=== PATIENT | male | born 1970 | race Caucasian/White ===

== ENCOUNTER 2024-07-09 15:18 | Emergency (ER) | payer OTHER, SELFPAY ==
[2024-07-09 15:23] VITALS: BP 183/86; PULSE 99; RESP 14; TEMP 37.2; O2SAT 98; BMI 36.3
--- NOTE | 2024-07-09 15:52 | ED_ITS ---
HPI - Back Pain/Injury General Chief Complaint: Back Pain/Injury Stated Complaint: Kidney Stones Time Seen by Provider: 07/09/24 15:34 Source: patient History of Present Illness HPI Narrative: Patient here for right flank pain. Patient states started slowly this morning and worsened by noon time. Patient has history of kidney stones and thinks it may feel about the same. Has nausea but no vomiting. No urinary complaints. No hematuria. No groin or testicular pain or discomfort. Reducible on palpation Related Data Previous Rx's Medication Instructions Recorded baclofen 20 mg tablet 20 mg PO TID PRN pain (scale score 07/09/24 4-6) #20 tabs Allergies Allergy/AdvReac Type Severity Reaction Status Date / Time codeine Allergy Verified 07/09/24 15:23 Review of Systems Review of Systems Narrative: GENERAL: Negative chills, fatigue, malaise, fever, sweats. HEENT: Negative sinus pain, ear pain, sore throat RESPIRATORY: Negative dyspnea, cough CARDIOVASCULAR: Negative chest pain, palpitations GASTROINTESTINAL: Negative vomiting, positive nausea, positive flank/abdominal pain : Negative dysuria, frequency, hematuria MUSCULOSKELETAL: Negative muscle or bony pain SKIN: Negative rash, skin lesions NEUROLOGIC: Negative weakness, numbness ROS Unobtainable: All systems reviewed & are unremarkable except as noted in HPI and below Patient History Social History Smoking Status: Never smoker Smoking Status: Never smoker Alcohol type: beer, wine and hard liquor Exam Narrative Exam Narrative: GENERAL: in no distress, not toxic not dyspneic HEAD: Normocephalic. EYES: Pupils equal round ENT: Mucous membranes moist. NECK: Trachea midline. CARDIOVASCULAR: Regular rate and rhythm RESPIRATORY: Clear to auscultation. Breath sounds equal bilaterally. No wheezes, rales, or rhonchi. GASTROINTESTINAL: Abdomen soft, non-tender no CVA tenderness no pain out of portion exam. No peritoneal signs no guarding no rebound. Bowel sounds are present. EXTREMITIES: No gross deformities. BACK: No flank tenderness. NEURO: AOx4. Clear speech SKIN: Warm and dry PSYCH: Not anxious, is cooperative Initial Vital Signs Initial Vital Signs: Vital Signs Temperature 98.9 F 07/09/24 15:23 Pulse Rate 99 H 07/09/24 15:23 Respiratory Rate 14 07/09/24 15:23 Blood Pressure 183/86 H 07/09/24 15:23 Pulse Oximetry 98 07/09/24 15:23 Oxygen Delivery Method Room Air 07/09/24 15:23 Course Orders Ordered: Discontinued Medications Sodium Chloride (Normal Saline 0.9%) 1,000 mls @ 1,000 mls/hr IV BOLUS ONE Stop: 07/09/24 16:50 Last Infusion: 07/09/24 17:15 Dose: Infused Documented By: Admin: 07/09/24 16:02 Dose: 1,000 mls/hr Documented By: ALEKSANDR Ketorolac Tromethamine (Ketorolac 30 Mg/Ml Vial) 15 mg IV NOW ONE Stop: 07/09/24 15:52 Last Admin: 07/09/24 16:01 Dose: 15 mg Documented By: ALEKSANDR Ondansetron HCl (Ondansetron 4 Mg/2 Ml Inj) 4 mg IV NOW PRN PRN Reason: Nausea And Vomiting Last Admin: 07/09/24 16:02 Dose: 4 mg Documented By: ALEKSANDR Ondansetron HCl (Ondansetron 4 Mg Odt) 4 mg PO NOW PRN PRN Reason: Nausea And Vomiting Vital Signs Vital signs: Vital Signs - 8 hr 07/09/24 15:23 Temperature 98.9 F Pulse Rate 99 H Respiratory Rate 14 Blood Pressure 183/86 H Pulse Oximetry 98 Oxygen Delivery Method Room Air MDM - Back Pain/Injury Lab Data 07/09/24 15:46 07/09/24 15:46 Labs: Lab Results 07/09/24 Range/Units 15:46 WBC 5.1 (4.5-11.0) X10^3/uL RBC 4.75 (4.5-5.9) X10^6/uL Hgb 15.1 (13.5-17.5) g/dL Hct 43.5 (41-53) % MCV 91.4 (80-100) fL MCH 31.7 (26-34) PG MCHC 34.7 (30-36) % RDW 14.5 (11.6-14.8) % Plt Count 212 (150-400) X10^3/uL Neut % (Auto) 51.8 (50-75) % Lymph % (Auto) 37.7 (25-40) % [place] % (Auto) 8.0 (3-14) % Eos % (Auto) 1.6 L (2-4) % Baso % (Auto) 0.9 (0-2) % Neut # (Auto) 2600 (7209-2968) /uL Lymph # (Auto) 1900 (5907-0215) /uL [place] # (Auto) 400 (0-900) /uL Eos # (Auto) 100 (0-450) /uL Baso # (Auto) 0 (0-100) /uL Sodium 134 L (137-145) mmol/L Potassium 4.1 (3.4-5.1) mmol/L Chloride 102 (98-107) mmol/L Carbon Dioxide 21 L (22-32) mmol/L BUN 16 (9-20) mg/dL Creatinine 0.83 (0.66-1.25) mg/dL Estimated GFR > 60 (>60) mL/min BUN/Creatinine Ratio 19.3 (6-22) Glucose 236 H (70-100) mg/dL Calcium 8.7 (8.4-10.2) mg/dL Total Bilirubin 0.7 (0.2-1.3) mg/dL AST 37 (17-59) IU/L ALT 34 (<50) IU/L Alkaline Phosphatase 88 (38-126) U/L Total Protein 7.6 (6.3-8.2) g/dL Albumin 4.6 (3.5-5.0) g/dL Globulin 3.0 (1.7-4.1) g/dL Albumin/Globulin Ratio 1.5 (1.0-2.8) Lipase 60 (23-300) U/L Urine Dip Bedside Urine Glucose Negative Bedside Urine Bilirubin - Negative Bedside Urine Ketone - Negative Urine Specific [place] 1.030 Bedside Urine Occult Blood - Negative Bedside Urine pH 6.0 Bedside Urine Protein - Negative Bedside Urine Urobilinogen - Negative Bedside Urine Nitrite - Negative Bedside Urine Leukocytes - Negative Esterase Imaging Data CT scan - abdomen/pelvis: Radiologist's Impression: [address] [address] [address] Scan Report Signed Patient: Tristan Schaffer MR#: [id number] : 1970 Acct:[id number] Age/Sex: 54 / M Date of Service: 07/09/24 Loc: ED Accession Number: [id number] Procedure: CT kidney ureter bladder (KUB) Ordering Provider: Brannon Yu MD PROCEDURE: CT KIDNEY URETER BLADDER (KUB) INDICATIONS: Right flank pain TECHNIQUE: Axial sections were acquired from the lung bases to the pubic symphysis. Coronal and sagittal reformats were performed. For radiation dose reduction, the following was used: automated exposure control, adjustment of mA and/or kV according to patient size. COMPARISON: None. FINDINGS: Image quality: Diagnostic. Lower Chest: No significant findings. URINARY: Right Kidney: No discrete stone however the some increased densities within the parenchyma measuring approximately 5 mm. This may reflect milk of calcium versus hemorrhagic cyst. Right Ureter: No hydroureter. Left Kidney: No stones or hydronephrosis. Left Ureter: No hydroureter. Bladder: Normal wall thickness. No stones. ABDOMEN: Liver: No contour-deforming solid mass. Gallbladder: No radiopaque gallstones or wall thickening. Biliary ducts: No biliary dilation. Pancreas: No ductal dilation. Spleen: Size is within normal limits. Adrenal Glands: No adrenal nodules. Stomach and Bowel: Normal colonic caliber, without significant wall thickening. Numerous colonic diverticula without evidence of acute diverticulitis. Normal appendix. Peritoneum: No abnormal intraperitoneal fluid. No free air. Ventral Wall: No hernia. Abdominal Nodes: No enlarged retroperitoneal or mesenteric lymph nodes. Vessels: Aorta and inferior vena cava are normal in size. PELVIS: Pelvic Organs: Unremarkable. Pelvic Nodes: Unremarkable. Miscellaneous: Small left fat containing inguinal hernia. Bones: Unremarkable. IMPRESSION: No obstructing stone or hydronephrosis. Intermediate density within the right kidney may reflect hemorrhagic cyst or milk of calcium with mass not excluded. Consider dedicated nonemergent MRI for further evaluation Numerous colonic diverticula without evidence of acute diverticulitis. Dictated by: Brannon Myles M.D. on 07/09/2024 at 15:26 Approved by: Brannon Myles M.D. on 07/09/2024 at 15:32 [facility] Narrative Medical decision making narrative: Patient here for right flank pain. Patient states started slowly this morning and worsened by noon time. Patient has history of kidney stones and thinks it may feel about the same. Has nausea but no vomiting. No urinary complaints. No hematuria. No groin or testicular pain or discomfort. Reducible on palpation After history and exam, Toradol Zofran normal saline CBC CMP urinalysis CT KUB [facility] Medical records reviewed: No recent visit here for this complaint Differential considered: Includes but not limited to UTI pyelonephritis kidney stone ureteral stone cholelithiasis cholecystitis Lab Test results independently reviewed as above. Pertinent findings: WBC 5.1 hemoglobin 15.1 sodium 134 potassium 4.1 AST 37 ALT 34 lipase 60 urinalysis negative blood negative leukocyte esterase negative nitrite Imaging studies independently reviewed: CT KUB, no kidney stone renal stone, there is a right renal cyst. Consultations: None indicated at this time Re-evaluations: 5:00 p.m.. Updated patient results. Exam is reassuring. Laboratory studies are reassuring. However will need continued evaluation by Urology given CT findings of renal cyst. Is likely musculoskeletal causing pain, reviewed with him. Patient is reviewed. Prescriptions provided. He is from [place]. He will need to follow up with his primary care regarding blood pressure findings today. However is likely due to pain at this time. Return precautions reviewed. He desires discharge home. Discussion: Appropriate for discharge home exam is reassuring. Return precautions reviewed with patient. Not toxic at discharge. Pain is controlled. He desires discharge home. Referrals provided. Diagnosis: Flank pain back pain Discharge Plan Departure Patient Disposition: Home Clinical Impression: Mid back pain Instructions: DI for Flank Pain, DI for Thoracic Back Pain Activity Restrictions/Additional Instructions: Your results today are reassuring however you will need continued evaluation for your pain. Please call provided urology office on Thursday for review of today's findings of the cyst on your kidney. This may not necessarily be the source of your pain but does need follow up. Your pain could be due to a pinched nerve in your back causing spasms in the muscles. Prescriptions have been sent to your pharmacy to continue. See family doctor or your clinic to have your blood pressure rechecked. Return if worse if any questions or concerns. Prescriptions: New baclofen 20 mg tablet 20 mg PO TID PRN (Reason: pain (scale score 4-6)) Qty: 20 0RF Referrals: David Mckoy DO [Physician] - Stand Alone Forms: Patient Portal/API/Survey
[2024-07-09 15:54] LABS: Add Manual Diff / Slide Review NO; Basophils Absolute Auto 0 /uL (0-100); Basophils Percent Auto 0.9 % (0-2); Eosinophils Absolute Auto 100 /uL (0-450); Eosinophils Percent Auto 1.6 % (2-4); Hematocrit 43.5 % (41-53); Hemoglobin 15.1 g/dL (13.5-17.5); Lymphocytes Absolute Auto 1900 /uL (1100-4500); Lymphocytes Percent Auto 37.7 % (25-40); Mean Corpuscular HGB Conc 34.7 % (30-36); Mean Corpuscular Hemoglobin 31.7 PG (26-34); Mean Corpuscular Volume 91.4 fL (80-100); Monocytes Absolute Auto 400 /uL (0-900); Neutrophils Absolute Auto 2600 /uL (1500-7000); Neutrophils Percent Auto 51.8 % (50-75); Platelet Count 212 X10^3/uL (150-400); Red Blood Cell Count 4.75 X10^6/uL (4.5-5.9); Red Cell Distribution Width 14.5 % (11.6-14.8); White Blood Cell Count 5.1 X10^3/uL (4.5-11.0)
[2024-07-09] MEDS: KETOROLAC 30 MG/ML VIAL 15 MG IV (16:01)
[2024-07-09] MEDS: ONDANSETRON 4 MG/2 ML INJ IV (16:02)
[2024-07-09] MEDS: SODIUM CHLORIDE 0.9% 1,000 ML 1000 ML IV (16:02)
[2024-07-09 16:07] LABS: Alanine Aminotransferase 34 IU/L (<50); Albumin 4.6 g/dL (3.5-5.0); Albumin Globulin Ratio 1.5 (1.0-2.8); Alkaline Phosphatase 88 U/L (38-126); Aspartate Aminotransferase 37 IU/L (17-59); BUN Creatinine Ratio 19.3 (6-22); Bilirubin Total 0.7 mg/dL (0.2-1.3); Blood Urea Nitrogen 16 mg/dL (9-20); Calcium 8.7 mg/dL (8.4-10.2); Carbon Dioxide 21 mmol/L (22-32); Chloride 102 mmol/L (98-107); Estimated Glomerular Filt Rate > 60 mL/min (>60); Glucose 236 mg/dL (70-100); HEMOLYSIS < 15 (0-50); Lipase 60 U/L (23-300); Potassium 4.1 mmol/L (3.4-5.1); Sodium 134 mmol/L (137-145); Total Protein 7.6 g/dL (6.3-8.2)
[2024-07-09 17:17] VITALS: BP 135/84; PULSE 74; RESP 14; O2SAT 96
== END 2024-07-09 17:20 | disposition home or self-care (01) ==
PROVIDERS: Emergency Provider Emergency Medicine
DX: M54.6 Pain in thoracic spine (principal); Z87.442 Personal history of urinary calculi; R11.0 Nausea
CPT/HCPCS: 74176; 80053; 81003; 83690; 85025; 96361; 96374; 96375; 99283; 99284; J1885; J2405